=== PATIENT | female | born 1970 | race Caucasian/White ===

== ENCOUNTER → 2020-03-30 | Outpatient (CLI) | payer OTHER | LOC: RAD 14:15 | DX: R07.2 Precordial pain (principal) | CPT/HCPCS: 71046 ==

== ENCOUNTER → 2020-04-27 | Outpatient (CLI) | payer OTHER | LOC: HEART 5 08:28 | DX: R07.9 Chest pain, unspecified (principal) | CPT/HCPCS: 93306 ==

== ENCOUNTER 2020-08-20 11:03 | Emergency (ER) | payer OTHER ==
[~2020-08-20] VITALS: Ht 165.1 cm; Wt 120.2 kg
[2020-08-20 12:36] LABS: HEMOGLOBIN 10.4 gm/dl (12.3-15.3); RED BLOOD COUNT 4.31 M/UL (4.00-5.10); WHITE BLOOD COUNT 3.8 K/UL (4.5-11.0)
[2020-08-20 12:53] LABS: BUN/CREATININE RATIO 7 (0-10)
== END 2020-08-20 16:17 | disposition home or self-care (01) ==
LOC: ER1 11:03
PROVIDERS: Student in an Organized Health Care Education/Training Program
DX: Z23 Encounter for immunization (principal); U07.1 COVID-19; J12.82 Pneumonia due to coronavirus disease 2019; E87.6 Hypokalemia; E03.9 Hypothyroidism, unspecified; Z90.49 Acquired absence of other specified parts of digestive tract
CPT/HCPCS: 71045; 80053; 82550; 82553; 83874; 84484; 84702; 85025; 93005; 99284; J7120; M0243

== ENCOUNTER → 2021-04-27 | Outpatient (CLI) | payer OTHER | LOC: KOH-I 09:51 | DX: M54.50 Low back pain, unspecified (principal); M51.36 Other intervertebral disc degeneration, lumbar region; M51.37 Other intervertebral disc degeneration, lumbosacral region | CPT/HCPCS: 72100 ==

== ENCOUNTER → 2021-04-28 | Outpatient (CLI) | payer OTHER | LOC: KOH-I 10:50 | DX: M54.50 Low back pain, unspecified (principal); M79.10 Myalgia, unspecified site | CPT/HCPCS: 72220 ==

== ENCOUNTER → 2021-09-13 | Outpatient (CLI) | payer OTHER | LOC: KOH-I 11:57 | DX: M25.512 Pain in left shoulder (principal) | CPT/HCPCS: 73030 ==

== ENCOUNTER → 2021-10-12 | Outpatient (CLI) | payer OTHER | LOC: KOH-I 08:21 | DX: R79.89 Other specified abnormal findings of blood chemistry (principal) | CPT/HCPCS: 76700 ==